=== PATIENT | female | born 1985 | race Hispanic/Latino ===

== ENCOUNTER 2017-06-25 06:13 | Day surgery (SDC) | payer MEDICAID ==
[2017-06-25] MEDS ORDERED: WATER FOR IRRIG STERILE IR ONE (07:28)
--- NOTE | 2017-06-25 07:47 | Anesthesia Day of Surgery ---
Anesthesia Day of Surgery - Day of Surgery Patient Examined: Yes Patient H&P Reviewed: Yes Patient is NPO: Yes
--- NOTE | 2017-06-25 07:48 | Anesthesia Consultation ---
Anesthesia Consult and Med Hx Date of service: 06/25/17 - Airway Anesthetic Teeth Evaluation: Good ROM Head & Neck: Adequate Mental/Hyoid Distance: Adequate Mallampati Class: Class II Intubation Access Assessment: Probably Good - Pulmonary Exam CTA: Yes - Cardiac Exam Cardiac Exam: RRR - Pre-Operative Health Status ASA Pre-Surgery Classification: ASA3 - Other Systems Hx Obesity: Yes
[2017-06-25] MEDS ORDERED: NACL 0.9% 1000 ML 1,000 ML IV SCH (08:00)
[2017-06-25] MEDS ORDERED: DIPRIVAN 10 MG/ML IV ONE (08:19)
--- NOTE | 2017-06-25 08:41 | Post Anesthesia Evaluation ---
- Post Anesthesia Evaluation Patient Participated: Yes Airway Patent: Yes Stable Respiratory Function: Yes Nausea/Vomiting: No Temp > 96.8F: Yes Pain Manageable: Yes Adequeate Hydration: Yes Anesthesia Complications: No
--- NOTE | 2017-06-25 08:43 | Discharge Summary ---
Providers - Providers Attending physician: SERA PERSAUD Primary care physician: FERDINAND CHATTERJEE Hospitalization Hospital course: 32 y.o. F presented to endoscopy for eval for upcoming bariatric surgery and to eval for dyspepsia. She tolerated the procedure well. She was discharged the same day. Disposition: TO HOME OR SELFCARE Core Measure Documentation - Palliative Care Palliative Care/ Comfort Measures: Not Applicable - Core Measures Any of the following diagnoses?: none Exam - Physical Exam Narrative exam: no change from prior - Constitutional Vitals: Temp Pulse Resp BP Pulse Ox 98.5 F 86 15 104/69 96 06/25/17 07:52 06/25/17 07:52 06/25/17 07:52 06/25/17 07:52 06/25/17 07:52 Plan Additional Instructions: follow up for surgery Follow up with: FERDINAND CHATTERJEE MD [Primary Care Provider] - 7 Days
--- NOTE | 2017-06-25 08:45 | Operative Report ---
Operative Report Operative Report: OPERATIVE REPORT - EGD DATE 06/25/17 SURGERY: Upper endoscopy. SURGEON: Dr. Curran SPRAY GUNNER: Dr. Devang BRAMBILA PRE OP DX:Dyspepsia POST OP DX: Dyspepsia TYPE OF ANESTHESIA: MAC. ESTIMATED BLOOD LOSS: None. COMPLICATIONS: None. SPECIMENS REMOVED: None. FINDINGS: 1. Small hiatal hernia. 2. Otherwise, normal esophagus, stomach and first portion of duodenum. INDICATIONS:INDICATION FOR PROCEDURE: Patient is a 32-year-old female with a long history of morbid obesity. She is planned to have a weight loss procedure and is here for preoperative planning EGD and to eval her dyspepsia. PROCEDURE DETAILS: After consent was reviewed, patient was taken back to the operating room where patient was placed in the left lateral decubitus position and a bite block was placed in the mouth. After a time-out was called, MAC anesthesia was initiated. I then passed the endoscope into her oropharynx, into her esophagus, visualized the entire esophagus, which was all within normal limits. I then visualized the stomach and the first portion of the duodenum and there were no abnormalities I could clearly visualize. I then retroflexed the scope in the stomach and visualized the hiatus and I could see a small hiatal hernia. I then desufflated the stomach and removed the endoscope. Patient tolerated procedure well and was transferred to recovery room in good and stable condition.
[2017-06-25 09:47] VITALS: BP 144/86
== END 2017-06-25 06:14 | disposition home or self-care (01) ==
LOC: GIO 06:13
PROVIDERS: ATTEND Specialist
DX: R10.13 Epigastric pain (principal); K44.9 Diaphragmatic hernia without obstruction or gangrene; K21.9 Gastro-esophageal reflux disease without esophagitis; E66.01 Morbid (severe) obesity due to excess calories; Z68.43 Body mass index [BMI] 50.0-59.9, adult; Z98.890 Other specified postprocedural states; Z98.82 Breast implant status
CPT/HCPCS: 43235; 81025; J2704; J7030